=== PATIENT | male | born 1950 | race Caucasian/White ===

== ENCOUNTER 2025-05-12 10:30 | Emergency (ER) | payer OTHER ==
[~2025-05-12] VITALS: Ht 177.8 cm; Wt 75.0 kg
[2025-05-12 10:45] VITALS: TEMP 98.6
[2025-05-12 12:16] LABS: PLATELET COUNT (AUTO) 225 K/uL (150-450); RED BLOOD CELL COUNT(AUTO) 5.04 MIL/uL (4.50-5.90); RED CELL DISTRIBUTION WIDTH 14.7 % (11.5-14.5); WHITE BLOOD COUNT (AUTO) 5.0 K/uL (4.5-11.0)
[2025-05-12 12:24] LABS: CALCIUM, TOTAL 9.3 mg/dL (8.8-10.5); CREATININE 0.83 mg/dL (0.60-1.30); GLOMERULAR FILTR. RATE CALC > 60 mL/min (>60); GLUCOSE,RANDOM 106 mg/dL (70-110); SODIUM SERUM 141 mmol/L (136-145); UREA NITROGEN, BLOOD 28 mg/dL (7-18)
[2025-05-12 15:02] VITALS: BP 152/87; PULSE 76; RESP 16; O2SAT 100
== END 2025-05-12 15:05 ==
LOC: EMS 10:33
DX: R42 Dizziness and giddiness (principal); I10 Essential (primary) hypertension; I48.91 Unspecified atrial fibrillation; Z87.820 Personal history of traumatic brain injury; Z98.890 Other specified postprocedural states; Z02.89 Encounter for other administrative examinations
CPT/HCPCS: 70450; 80048; 85025; 85610; 93005; 99284